=== PATIENT | female | born 1965 | race Two or more races ===

== ENCOUNTER 2017-05-24 10:46 | Emergency (ER) | payer OTHER ==
[~2017-05-24] VITALS: Ht 162.6 cm; Wt 67.6 kg
--- NOTE | 2017-05-24 10:46 | NUR ---
[id number] FROM GYM: S/P WITNESSED SEIZURES, PT IS POSICTAL A/O x 1 CURRENTLY. PT IS COMPLIANT AND NON COMBATIVE. NAD NOTED. RR EVEN AND UNLABORED. VSS. DR HUERTA AT BEDSIDE FOR EVAL.
--- NOTE | 2017-05-24 10:50 | NUR ---
PT MORE ALERT, AND VERBALLY RESPONSIVE. WILL CONT TO MONITOR.
--- NOTE | 2017-05-24 11:22 | NUR ---
PT AT BEDSIDE.
[2017-05-24 11:38] VITALS: BP 111/69
== END 2017-05-24 11:39 | disposition home or self-care (01) ==
LOC: ER 10:49
DX: R56.9 Unspecified convulsions (principal)
CPT/HCPCS: 99283; A4606; Z7610